=== PATIENT | male | born 1945 | race Caucasian/White ===

== ENCOUNTER 2021-02-15 10:51 | Outpatient (CLI) | payer MEDICARE | END 2021-02-15 10:52 | disposition home or self-care (01) | LOC: CSHMRI 10:51 | PROVIDERS: ATTEND Family Medicine | DX: R41.89 Other symptoms and signs involving cognitive functions and awareness (principal); R90.82 White matter disease, unspecified | CPT/HCPCS: 70553; 82565 ==

== ENCOUNTER → 2021-07-14 | Day surgery (SDC) | payer MEDICARE | LOC: CSHSDC/OP 09:09 | PROVIDERS: ATTEND Family Medicine | DX: U07.1 COVID-19 (principal); Z23 Encounter for immunization | CPT/HCPCS: J3490; Q0244 ==

== ENCOUNTER 2023-01-10 09:23 | Outpatient (CLI) | payer MEDICARE | END 2023-01-10 09:24 | disposition home or self-care (01) | LOC: CSHMRI 09:23 | PROVIDERS: ATTEND Family Medicine | DX: F03.90 Unspecified dementia, unspecified severity, without behavioral disturbance, psychotic disturbance, mood disturbance, and anxiety (principal); R13.10 Dysphagia, unspecified; R47.1 Dysarthria and anarthria | CPT/HCPCS: 70553; 82565 ==

== ENCOUNTER 2023-06-04 14:52 | Inpatient (IN) | payer MEDICARE ==
[2023-06-04 18:20] LABS: #Eosinphils 0.1 10x3/uL (0.0-0.5); #Monocytes 0.6 10x3/uL (0.0-1.1); #Neutrophils 6.4 10x3/uL (1.5-8.4); %Basophils 0.3 % (0.0-2.0); %Lymphocytes 23.2 % (18.0-47.0); %Monocytes 6.8 % (0.0-10.0); %Neutrophils 68.4 % (40.0-75.0); Hemoglobin 16.2 g/dL (13.5-17.5); Mean Corpuscular HGB CONC 33.1 g/dL (32.0-36.0); Mean Corpuscular Hemoglobin 28.8 pg (27.0-33.0); Mean Platelet Volume 9.7 fl (7.4-10.4); Platelet Count 198 10x3/uL (150-450); RBC Distribution Width 12.7 % (11.5-14.5); Red Blood Cell (RBC) Count 5.62 10x6/uL (4.32-5.72); White Blood Cell (WBC) Count 9.4 10x3/uL (3.5-10.5)
[2023-06-04 18:38] LABS: ALT (SGPT) 47 U/L (8-55); AST (SGOT) 30 U/L (5-34); Albumin 4.8 g/dL (3.4-4.8); Alkaline Phosphatase 71 U/L (40-110); Anion Gap 18 mmol/L (10-20); BUN (Urea Nitrogen) 20 mg/dL (8.4-25.7); Bilirubin, Total 0.5 mg/dL (0.2-1.2); Calc. Creatinine Clearance 0 mL/min (70-130); Calcium 9.6 mg/dL (7.8-10.44); Carbon Dioxide 25 mmol/L (23-31); Chloride 105 mmol/L (98-107); Estimated GFR 55; Globulin 3.1 g/dL (2.4-3.5); Glucose 137 mg/dL (83-110); Potassium 4.1 mmol/L (3.5-5.1); Protein, Total 7.9 g/dL (5.8-8.1); Sodium 144 mmol/L (136-145)
[2023-06-04] MEDS ORDERED: Ampicillin/Sulbactam 3 GM in Sodium Chloride 0.9% 100 ML IVPB SCH (19:00)
[2023-06-04] MEDS ORDERED: Acetaminophen 650 MG Suppository PR PRN (20:36)
[2023-06-04] MEDS ORDERED: Ondansetron ODT 4 MG TAB PO PRN (20:36)
[2023-06-04] MEDS ORDERED: Ondansetron PF 4 MG/2 ML Vial IVP PRN (20:36)
[2023-06-04] MEDS ORDERED: Acetaminophen 325 MG TAB PO PRN (20:36)
[2023-06-04] MEDS ORDERED: Sodium Chloride 0.9% 1,000 ML IV SCH (22:15)
[2023-06-05 04:45] LABS: Anion Gap 15 mmol/L (10-20); BUN (Urea Nitrogen) 18 mg/dL (8.4-25.7); Calc. Creatinine Clearance 0 mL/min (70-130); Calcium 9.1 mg/dL (7.8-10.44); Carbon Dioxide 23 mmol/L (23-31); Chloride 108 mmol/L (98-107); Estimated GFR 88; Glucose 142 mg/dL (83-110); Potassium 3.7 mmol/L (3.5-5.1); Sodium 142 mmol/L (136-145)
[2023-06-05 04:56] LABS: #Monocytes 0.6 10x3/uL (0.0-1.1); %Basophils 0.2 % (0.0-2.0); %Eosinophils 0.3 % (0.0-6.0); %Monocytes 7.4 % (0.0-10.0); %Neutrophils 69.9 % (40.0-75.0); Hemoglobin 14.5 g/dL (13.5-17.5); Mean Corpuscular HGB CONC 33.2 g/dL (32.0-36.0); Mean Corpuscular Hemoglobin 28.8 pg (27.0-33.0); Mean Corpuscular Volume 86.7 fl (81.2-95.1); Mean Platelet Volume 10.1 fl (7.4-10.4); Platelet Count 182 10x3/uL (150-450); RBC Distribution Width 12.7 % (11.5-14.5); Red Blood Cell (RBC) Count 5.04 10x6/uL (4.32-5.72); White Blood Cell (WBC) Count 8.6 10x3/uL (3.5-10.5)
[2023-06-05 04:57] VITALS: BMI 24.3
[2023-06-05] MEDS: Ampicillin/Sulbactam 3 GM in Sodium Chloride 0.9% 100 ML IVPB SCH ×3 (09:34→21:21)
[2023-06-05 16:49] LABS: Hemoglobin A1c 6.2 % (4.0-6.0)
[2023-06-05] MEDS: Nystatin 500,000 UNITS/5 ML UDCUP SSW SCH ×2 (18:00→21:21)
[2023-06-06] MEDS: Ampicillin/Sulbactam 3 GM in Sodium Chloride 0.9% 100 ML IVPB SCH ×2 (02:30→08:38)
[2023-06-06 05:17] VITALS: BP 129/60; TEMP 98.5
[2023-06-06] MEDS: Nystatin 500,000 UNITS/5 ML UDCUP SSW SCH (08:37)
== END 2023-06-06 09:15 | disposition home or self-care (01) | DRG 178 ==
LOC: CSHERS 14:52 → CSHERHOLD 19:45 → CSHIMCU 06-05 07:30
PROVIDERS: ADMIT Student in an Organized Health Care Education/Training Program; ATTEND Family Medicine
DX: J69.0 Pneumonitis due to inhalation of food and vomit (principal); G12.21 Amyotrophic lateral sclerosis; N17.9 Acute kidney failure, unspecified; E11.9 Type 2 diabetes mellitus without complications; R13.10 Dysphagia, unspecified; R47.1 Dysarthria and anarthria; Z79.899 Other long term (current) drug therapy; Z82.0 Family history of epilepsy and other diseases of the nervous system
CPT/HCPCS: 70551; 71045; 80048; 80053; 83036; 85025; 93005; J0295; J1650; J3490

== ENCOUNTER 2023-10-17 08:43 | Day surgery (SDC) | payer MEDICARE ==
[2023-10-16 11:36] VITALS: BMI 25.2
[2023-10-17] MEDS ORDERED: LevoFLOXacin 500 mg/D5W 100 ML BAG ONE (11:33)
[2023-10-17] MEDS ORDERED: Vancomycin HCl 500 MG in Sodium Chloride 0.9% 100 ML IVPB SCH (12:15)
[2023-10-17] MEDS ORDERED: PROPOFOL 20 ML ONE ×2 (13:09→13:33)
[2023-10-17] MEDS ORDERED: fentaNYL 50 mcg/mL 1 mL Vial ONE (13:09)
== END 2023-10-17 14:46 | disposition home or self-care (01) ==
LOC: CSHSDC 08:43
PROVIDERS: ATTEND Internal Medicine Gastroenterology
PROC: 0D20XUZ Change Feeding Device in Upper Intestinal Tract, External Approach (ICD-10-PCS; principal; 2023-10-17)
DX: R13.10 Dysphagia, unspecified (principal); Z88.1 Allergy status to other antibiotic agents
CPT/HCPCS: 43246; J3010; J1956; J2704; J3370; J3490